=== PATIENT | male | born 1990 ===

== ENCOUNTER → 2024-08-02 09:30 | Outpatient (BNV) | payer OTHER, SELFPAY | PROVIDERS: Visit Provider Internal Medicine Cardiovascular Disease | DX: R00.1 Bradycardia, unspecified (principal) | CPT/HCPCS: 93244 ==

== ENCOUNTER → 2024-08-02 09:30 | Outpatient (REF) | payer OTHER, SELFPAY ==
--- NOTE | 2024-08-02 | HM_ITS ---
Conclusion: 1. Patient was monitored for total period of 6 days and 23 hours 2. Baseline rhythm is normal sinus rhythm with average heart of 61 beats per minute 3. Frequent sinus bradycardia noted with 64% of time heart rate below 60 beats per minute with no significant pauses 4. No significant arrhythmias noted 5. Patient reported 10 events with symptoms of pounding as well as dizziness correlating with either sinus rhythm or sinus bradycardia or sinus tachycardia. There were no arrhythmias detected MTDD
== END ==
LOC: HO.CARD 09:30
PROVIDERS: Visit Provider Family Medicine
DX: R00.2 Palpitations (principal)
CPT/HCPCS: 93242